=== PATIENT | female | born 1990 | race Caucasian/White ===

== ENCOUNTER 2018-02-18 14:04 | Emergency (ER) | payer MEDICAID ==
[2018-02-18] MEDS ORDERED: CYCLOBENZAPRINE 10 MG TAB PO ONE (14:51)
[2018-02-18] MEDS ORDERED: predniSONE 20 MG TAB PO ONE (14:51)
[2018-02-18] MEDS ORDERED: OXYCODONE/APAP 5/325 TAB PO ONE (14:51)
--- NOTE | 2018-02-18 14:51 | EDPHY ---
General - History Smoking Status: Current some day smoker Time Seen by Provider: 02/18/18 14:25 Narrative: CHIEF COMPLAINT: Back pain HISTORY OF PRESENT ILLNESS: Patient complains of severe back pain that started at 8:30 or 9:00 a.m. This morning. She awoke without pain, but as she was walking to work she developed pain in the low back that radiated primarily to the right. At times it is severe. It never resolved. Worse with palpation, ambulation and movement. No numbness, tingling or weakness. No saddle anesthesia. No incontinence of bowel or bladder. She has no urinary complaints, flank pain, fever or abdominal pain. No complaints of illness. She has had pain similar to this in the past was diagnosis sciatica. This is the same type of pain that is more pronounced her. She does have repetitive exercise but no trauma to the back. no other associated complaints or modifying factors. REVIEW OF SYSTEMS: Ten systems reviewed and are negative unless otherwise noted in the HPI PCP: None SPECIALISTS: None PAST MEDICAL HISTORY: Sciatica PAST SURGICAL HISTORY: No surgical history SOCIAL HISTORY: Occasional smoker. Occasional alcohol marijuana. 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 Well-developed well-nourished. Head: normocephalic, atraumatic Eyes: Pupils equal and round, no conjunctival pallor or injection Neck: Normal inspection, supple, non-tender Respiratory: Lungs are clear to auscultation Cardiovascular: Regular rate and rhythm. No murmur Gastrointestinal: Abdomen is soft and nontender. No CVA tenderness. No tympany, rigidity or guarding. Back: Tenderness of the lower back right of midline over the SI joint. There is no midline tenderness of the back. No abnormality of the skin overlying the vertebrae. Neurological: A&O, nonfocal, antalgic but steady gait. Strength is symmetric in the lower extremities including the knees, ankles and great toe. Patellar reflexes symmetric. Sensory symmetric in the dorsum of the feet and plantar surface of the feet. Skin: Warm and dry, no rash no petechiae or purpura. Multiple tattoos and appears. Extremities: Nontender, no pedal edema. Symmetric range of motion extremities. Psychiatric: Mood and affect normal DIFFERENTIAL DIAGNOSES: Including but not limited to lumbar radiculopathy, sciatica, lumbar fracture, UTI, renal colic MDM: 2:40 p.m. Acute low back pain that is consistent with sciatica. She is neuro intact including patellar reflexes and strength of the great toe. She describes no incontinence of bowel or bladder or anesthesia of any location. She has no complaints that suggest any urinary tract involvement or any abdominal pain. I have ordered oral medications for. I do not feel she needs any laboratory studies or imaging at this time. 3:30 p.m. Patient re-evaluated. Her symptoms are starting to improve. She still has no neuro complaints. I do not feel she warrants any other workup at this time and she agrees. She would like to proceed home with oral medications. I will provide outpatient follow-up information for to contact. I would like her to return to the emergency department tomorrow if she has no improvement or sooner if she has any worsening. This includes increasing pain, any numbness, tingling or weakness, incontinence of bowel or bladder, fever, abdominal pain or urinary complaints. She is comfortable with this plan and discharged home stable condition, ambulatory without assistance. SUPERVISION: This patient was independently evaluated without direct involvement of or examination by the attending physician. (Adrian Kimball) Medical Decision Making: I did not see this patient while she was in the emergency department. However her care was discussed with the PA while the patient was in the department. I agree with treatment plan and management (Bronson Sen) - Objective Vital Signs: Initial Vital Signs Temperature (C) 36.7 C 02/18/18 14:11 Heart Rate 80 02/18/18 14:11 Respiratory Rate 16 02/18/18 14:11 Blood Pressure 108/76 02/18/18 14:11 O2 Delivery Mode Room Air Allergies/Adverse Reactions: Penicillins Allergy (Verified 02/18/18 14:11) Home Medications: Medication Instructions Recorded Cyclobenzaprine [Flexeril 10 MG 10 mg PO TID PRN #9 tab 02/18/18 (*)] oxyCODONE HCL/ACETAMINOPHEN 1 each PO Q4-6PRN PRN #9 tablet 02/18/18 [Percocet 5-325 mg Tablet] predniSONE [Deltasone] 60 mg PO DAILY #12 tablet 02/18/18 Medications Given: Discontinued Medications Cyclobenzaprine HCl (Flexeril) 10 mg PO EDNOW ONE Stop: 02/18/18 14:52 Last Admin: 02/18/18 15:11 Dose: 10 mg Oxycodone/Acetaminophen (Percocet 5/325) 1 tab PO EDNOW ONE Stop: 02/18/18 14:52 Last Admin: 02/18/18 15:11 Dose: 1 tab Prednisone (Prednisone) 60 mg PO EDNOW ONE Stop: 02/18/18 14:52 Last Admin: 02/18/18 15:11 Dose: 60 mg Departure - Departure Disposition: Home, Routine, Self-Care Clinical Impression: Acute low back pain, Lumbar radiculopathy, acute Condition: Good Instructions: Sciatica (ED), Lumbar Radiculopathy (ED), Lower Back Exercises ( ED) Additional Instructions: 1. Prednisone as prescribed for the next 3-5 days. Your next dose will be due tomorrow 2. Percocet pain medication as prescribed as needed for pain. Do not mix with any alcohol or illicit substances 3. Flexeril muscle relaxant as prescribed as needed 4. Contact the outpatient physicians that have been provided for you 5. Return to emergency department if you do not have any improvement of her symptoms by tomorrow morning. Return sooner for any worsening pain, numbness, tingling, weakness, incontinence of bowel or bladder, fever, abdominal pain or painful urination Referrals: Preeti Abraham MD [Medical Doctor] - As per Instructions Henrique Costa MD [Medical Doctor] - As per Instructions Stand Alone Forms: Work Excuse Prescriptions: Cyclobenzaprine [Flexeril 10 MG (*)] 10 mg PO TID PRN #9 tab PRN Reason: Spasms oxyCODONE HCL/ACETAMINOPHEN [Percocet 5-325 mg Tablet] 1 each PO Q4-6PRN PRN #9 tablet PRN Reason: Pain, Breakthrough predniSONE [Deltasone] 60 mg PO DAILY #12 tablet
[2018-02-18 15:54] VITALS: BP 112/74
== END 2018-02-18 15:54 | disposition home or self-care (01) ==
DX: M54.16 Radiculopathy, lumbar region (principal); F17.200 Nicotine dependence, unspecified, uncomplicated
CPT/HCPCS: J7512